=== PATIENT | male | born 2000 | race Caucasian/White ===

== ENCOUNTER 2025-09-21 13:54 | Outpatient (CLI) | payer MEDICAID, SELFPAY | END 2025-09-21 13:55 | disposition home or self-care (01) | LOC: NFLDREF 09-23 19:09 | PROVIDERS: PCP Family Medicine; Referring Provider Family Medicine; Visit Provider Family Medicine | DX: Z00.00 Encounter for general adult medical examination without abnormal findings (principal); Z13.6 Encounter for screening for cardiovascular disorders | CPT/HCPCS: 80053; 80061 ==